=== PATIENT | female | born 1975 ===

== ENCOUNTER 2017-12-22 19:13 | Emergency (ER) | payer OTHER ==
[~2017-12-22] VITALS: Ht 157.5 cm; Wt 56.9 kg
[2017-12-22] MEDS ORDERED: KETO10TA2 PO (21:17)
== END 2017-12-22 21:22 | disposition home or self-care (01) ==
LOC: ER 19:13
DX: S93.692A Other sprain of left foot, initial encounter (principal); X50.1XXA Overexertion from prolonged static or awkward postures, initial encounter; Y93.01 Activity, walking, marching and hiking; Y92.89 Other specified places as the place of occurrence of the external cause; Y99.8 Other external cause status